=== PATIENT | female | born 1995 | race Caucasian/White ===

== ENCOUNTER 2018-12-04 19:00 | Emergency (ER) | payer SELFPAY ==
[~2018-12-04] VITALS: Ht 157.5 cm; Wt 55.5 kg
[2018-12-04 19:05] VITALS: BP 125/61; PULSE 69; RESP 19; Ht 157.5 cm; Wt 55.5 kg
== END 2018-12-04 22:05 | disposition left against medical advice (07) ==
LOC: E/R 19:00
DX: Z53.21 Procedure and treatment not carried out due to patient leaving prior to being seen by health care provider (principal)

== ENCOUNTER 2018-12-13 18:21 | Emergency (ER) | payer SELFPAY ==
[~2018-12-13] VITALS: Ht 157.5 cm; Wt 57.0 kg
[2018-12-13 18:38] VITALS: BP 152/79; PULSE 100; RESP 18; Ht 157.5 cm; Wt 57.0 kg
== END 2018-12-13 21:53 | disposition left against medical advice (07) ==
LOC: FTE 18:21
DX: Z53.21 Procedure and treatment not carried out due to patient leaving prior to being seen by health care provider (principal)